=== PATIENT | male | born 1955 | race Caucasian/White ===

== ENCOUNTER 2022-01-13 17:35 | Emergency (ER) | payer MEDICARE ==
[~2022-01-13 17:35] MED LIST: ANTIVERT 25MG T25 MG PO; DEXAMETHASONE 44 MG PO; FAMOTIDINE20 MG PO; GLUCOPHAGE1000 MG PO; OMNICEF 300 MG300 MG PO; ROBITUSSIN DM UD5 ML PO; ZOFRAN ODT 4 MG4 MG PO
[2022-01-13 18:41] LABS: HEMOGLOBIN 14.5 gm/dl (14.0-17.5); RED BLOOD COUNT 4.86 M/UL (4.20-5.50)
[2022-01-13 19:16] LABS: BUN/CREATININE RATIO 22 (0-10)
[2022-01-13] MEDS ORDERED: LISINOPRIL10 MG PO (20:48)
== END 2022-01-13 21:09 | disposition home or self-care (01) ==
LOC: ER1 17:35
PROVIDERS: Nurse Practitioner
DX: I10 Essential (primary) hypertension (principal); E11.9 Type 2 diabetes mellitus without complications; Z79.899 Other long term (current) drug therapy
CPT/HCPCS: 71045; 80053; 82550; 82553; 84484; 85025; 93005; 99284

== ENCOUNTER → 2022-03-08 | Outpatient (CLI) | payer MEDICARE ==
[~2022-03-08] MED LIST changes: +LISINOPRIL10 MG PO
== END ==
LOC: KOH-I 09:23
DX: R06.02 Shortness of breath (principal); J98.11 Atelectasis
CPT/HCPCS: 71046